=== PATIENT | female | born 1940 | race Caucasian/White ===

== ENCOUNTER 2024-01-17 22:47 | Emergency (ER) | payer MEDICARE, OTHER, SELFPAY ==
[2024-01-17 22:47] VITALS: BMI 20.2
[2024-01-17 22:51] VITALS: BP 97/63
[2024-01-17 23:05] VITALS: BP 107/77
--- NOTE | 2024-01-17 23:14 | ED.GENMED ---
History of Present Illness
<SAMUEL Streeter - Last Filed: 01/18/24 05:10>
General
Chief Complaint: Cardiac Symptoms
Source: patient
Exam Limitations: none
Time Seen by Provider: 01/17/24 23:14
Nursing documentation reviewed up to this point in time: agreed with
History of Present Illness
History of Present Illness:
Pt is an 83 yo F with PMH of cardiac stenting and AFib who presents to the ED stating she has been in AFib for an hour. Pt states she can feel palpations and is SOB. She states she has gone into AFib around 10 times since December 15 and is
following with Dr. Hinson at [place] where she is supposed to schedule ablation soon. She states she takes Eliquis, Plavix and metoprolol for AFib. She denies that she has ever been electrically cardioverted. Pt admits to associated chest
tightness and SOB that have been constant since onset of her AFib symptoms. She states it is uncomfortable but manageable. Pt denies dizziness, HAY, n/v, abdominal pain.
Past History
<SAMUEL Streeter - Last Filed: 01/18/24 05:10>
Past History
ED Past Medical History: GERD and Other (Peripheral neuropathy, anxiety); Negative CAD, Cancer, CHF, COPD, HTN, Hypercholesterolemia or IDDM
ED Past Surgical History: None
Social History
Tobacco: Other (Secondhand smoke)
Alcohol: Occasional
Drug: None
Personal:
Living: with family
Employment: Employed
Family History
Family History: Hypertension and CAD; Negative Early CAD
Review of Systems
<SAMUEL Streeter - Last Filed: 01/18/24 05:10>
Review of Systems
Allergies reviewed?: Yes
Constitutional: Denies fever, fatigue or chills
Respiratory: Reports trouble breathing (SOB); Denies cough
Cardiac: Reports palpitations and other; Denies diaphoresis or syncope
ABD/GI: Denies abdominal pain, nausea or vomiting
Neurological: Denies dizzy, headache, weakness or numbness
Phy Exam
<SAMUEL Streeter - Last Filed: 01/18/24 05:10>
General Physical Exam
General Presentation: well appearing and no apparent distress
General age: appears stated age
General Skin: warm and dry
General Habitus: normal and elderly
General Mental: alert
General Hydration: appears well hydrated
Cardiovascular Exam
Cardiovascular Exam: irregularly irregular
Pulmonary Exam
Pulmonary Exam: lungs clear and no respiratory distress
Neurological Exam
Neurological Exam: alert, oriented x3, no motor deficits and no sensory deficits
Course
<SAMUEL Streeter - Last Filed: 01/18/24 05:10>
Orders/Labs/Results
Orders:
Orders
01/17/24 22:51
EKG [Electrocardiogram (*1)] Urgent
Reason for Study: Atrial Fibrillation
EKG- Treatment ONCE
01/17/24 23:32
Complete Blood Count/With Diff Urgent
Comprehensive Metabolic Panel Urgent
Magnesium Urgent
NT-proBNP Urgent
Troponin I Urgent
01/18/24 00:10
0.9% Sodium Chloride 500 ml [Nss] 1,000 ml IV ONCE
01/18/24 02:09
Metoprolol [Lopressor] 2.5 mg IV NOW STA
Abnormal Lab Results
01/18/24
00:11
RBC 4.08 L 10^6/uL
(4.20-5.40)
MCH 32.1 H pg
(27.0-31.0)
RDW 14.6 H %
(11.5-14.5)
Abs Immat Gran (auto) 0.1 H 10^3/uL
(0-0.05)
Absolute Monos (auto) 1.0 H 10^3/uL
(0.1-0.6)
Immature Gran % 1.0 H %
(0-0.5)
Neutrophils % 38.1 L %
(42.2-75.2)
Monocytes % 16.6 H %
(1.7-9.3)
BUN 22 H mg/dl
(7-17)
Glucose 106 H mg/dl
(70-99)
AST 42 H U/L
(14-36)
01/18/24 00:11
01/18/24 00:11
Vital Signs
Initial and Last Documented VS:
Initial Vital Signs
Temp Pulse Resp BP Pulse Ox
97.9 F 122 24 97/63 98
01/17/24 22:51 01/17/24 22:51 01/17/24 22:51 01/17/24 22:51 01/17/24 22:51
Last Documented Vital Signs
Temp Pulse Resp BP Pulse Ox
97.9 F 93 12 104/73 97
01/17/24 22:51 01/18/24 03:00 01/18/24 03:00 01/18/24 02:00 01/18/24 03:00
<Emmanuelle Avery, - Last Filed: 01/18/24 02:58>
Orders/Labs/Results
Orders:
Orders
01/17/24 22:51
EKG [Electrocardiogram (*1)] Urgent
Reason for Study: Atrial Fibrillation
EKG- Treatment ONCE
01/17/24 23:32
Complete Blood Count/With Diff Urgent
Comprehensive Metabolic Panel Urgent
Magnesium Urgent
NT-proBNP Urgent
Troponin I Urgent
01/18/24 00:10
0.9% Sodium Chloride 500 ml [Nss] 1,000 ml IV ONCE
01/18/24 02:09
Metoprolol [Lopressor] 2.5 mg IV NOW STA
Abnormal Lab Results
01/18/24
00:11
RBC 4.08 L 10^6/uL
(4.20-5.40)
MCH 32.1 H pg
(27.0-31.0)
RDW 14.6 H %
(11.5-14.5)
Abs Immat Gran (auto) 0.1 H 10^3/uL
(0-0.05)
Absolute Monos (auto) 1.0 H 10^3/uL
(0.1-0.6)
Immature Gran % 1.0 H %
(0-0.5)
Neutrophils % 38.1 L %
(42.2-75.2)
Monocytes % 16.6 H %
(1.7-9.3)
BUN 22 H mg/dl
(7-17)
Glucose 106 H mg/dl
(70-99)
AST 42 H U/L
(14-36)
01/18/24 00:11
01/18/24 00:11
Vital Signs
Initial and Last Documented VS:
Initial Vital Signs
Temp Pulse Resp BP Pulse Ox
97.9 F 122 24 97/63 98
01/17/24 22:51 01/17/24 22:51 01/17/24 22:51 01/17/24 22:51 01/17/24 22:51
Last Documented Vital Signs
Temp Pulse Resp BP Pulse Ox
97.9 F 93 12 104/73 97
01/17/24 22:51 01/18/24 03:00 01/18/24 03:00 01/18/24 02:00 01/18/24 03:00
<SAMUEL Streeter - Last Filed: 01/18/24 05:10>
*EKG
Interpreted by ED Provider?: Yes
EKG Intrepretation Date: 01/17/24
EKG Intrepretation Time: 22:55
Interpretation: abnormal
Comparison EKG: changes noted
Rate: tachycardiac
Rhythm: a-fib
[place]: left axis deviation
Interval: normal interval
QRS Pattern: normal QRS
Ischemia: non-specific ST changes
*Critical Care Note
Total Time (30-74mins, 75-104mins- exclusive of procedures): Not Applicable
<Emmanuelle Avery DO - Last Filed: 01/18/24 02:58>
*Pulse Oximetry
Patient hypoxic: no
ED Attending Note
<Mary Braxton [facility] - Last Filed: 01/18/24 05:10>
-
Portions of this chart may have been created with voice recognition software.� Occasional wrong word or��sound alike� substitutions may have occurred due to the inherent limitations of voice recognition software.
<Emmanuelle Avery DO - Last Filed: 01/18/24 02:58>
ED Attending Note
Patient seen and examined by attending physician: Yes
I performed the substantive portion of visit, reviewed & personally made and approve the management plan that is documented in note by myself or SADE.: Yes
ED Attending Note:
This is an 83-year-old woman with history of CAD, paroxysmal atrial fibrillation, GERD, hypothyroidism. She has history of PTCA with stent June 2023. Shortly after that procedure, sometime in July she developed A-fib and was started on amiodarone
and did well but then developed ocular complications and amiodarone was discontinued in November. She suffered an episode of A-fib October 11 which lasted approximately 6 hours. Then since December 15 she states she has had at least 10 episodes of
recurrent A-fib. She notes moderate fatigue with onset of A-fib, accompanied with mild shortness of breath, mild chest discomfort and overall not feeling well. She is chronically maintained on metoprolol 12.5 mg twice daily. She did take an extra
dose of metoprolol when she felt that she was going to go into A-fib tonight around 8 PM. Despite doing so she developed palpitations around 10 PM similar to previous episodes of A-fib. She is chronically maintained on twice daily Eliquis and
maintained on Plavix since PTCA with stent in June.
PTCA was performed in [place].
She also follows with a senior mechanical project manager locally associated with [place], Dr. Goldsmith.
She was evaluated by dough molder earlier this week and plan is for A-fib ablation due to significantly symptomatic and recurrent A-fib but she states she required an EKG while in A-fib prior to planning her ablation procedure.
She has been hospitalized for persistent A-fib initially in July but has never required cardioversion, has always spontaneously converted to normal sinus rhythm.
She presents tonight requesting EKG to be done to document A-fib. Request EKG to be faxed to her senior mechanical project manager office.
After PTCA with stent patient had been doing well with cardiac rehab. Upon returning to this area she has continued with exercise regimen with a first aid trainer but admits to difficulty with her exercises over the past week or 2 due to fatigue and
dyspnea.
Weight has been stable. She denies leg pain or swelling.
She states thyroid function testing was normal last week.
GENERAL: Alert , in no apparent distress. 83-year-old woman appears her stated age, bright and alert, pleasant, appears in no acute distress.
EYE: pupils equal
NECK: Supple, no significant adenopathy. No JVD.
ENT: o/p clr, mmm.
CARDIAC: Irregularly irregular, mildly tachycardic at 110
LUNGS: Clear breath sounds bilaterally, no acute respiratory distress,
ABDOMEN: Soft, without focal tenderness, no r/g, no cvat
NEUROLOGICAL: Alert and oriented, no focal neuro deficits
SKIN: Warm and dry, skin intact.
MUSCULOSKELETAL: No edema, well perfused.
PSYCH: Normal and appropriate interaction.
Patient presents with recurrent A-fib with mildly rapid ventricular response, symptomatic with fatigue, mild dyspnea. She also notes mild intermittent chest discomfort. Concern for CHF, ACS/rate related ischemia.
EKG shows A-fib with ventricular response of 120, left axis deviation, mildly flipped T waves 1 and aVL otherwise unremarkable.
Will check labs including troponin, BNP.
Blood pressure is somewhat soft and patient states hypotension is frequent occurrence with her atrial fibrillation.
Overall comfortable in appearance and has been ambulatory without difficulty.
Clinically appears euvolemic and lungs are clear to auscultation, will initiate IV fluids, check labs.
03:00
Patient remains in A-fib but rate controlled in the 90s.
Overall appears comfortable, hemodynamically stable and eager to be discharged to home.
Recommend she continue her regular medications including Eliquis, Plavix.
Prompt follow-up with senior mechanical project manager this week for recheck.
Return precautions discussed.
Discharge Plan
Departure
Patient Disposition: Home (Routine Discharge)
Date of Disposition: 01/18/24
Time of Disposition: 02:57
Patient with high blood pressure during this ER visit?: No
Condition: Good
Discharge Problem:
Paroxysmal atrial fibrillation with rapid ventricular response
Instructions: Atrial fibrillation
Prescriptions:
No Action
clopidogrel [Plavix] 75 mg Tablet
75 mg PO DAILY
metoprolol succinate 25 mg Tablet Extended Release 24 Hr
12.5 mg PO DAILY
Eliquis 2.5 mg Tablet
2.5 mg PO BID
Referrals:
UNKNOWN - PT DOES,NOT KNOW [Family Provider] -
Activity Restrictions/Additional Instructions:
Continue all of your regular medications.
Touch base with your senior mechanical project manager on Friday for recheck.
Interventions
Interventions:
*Risk Screen - Suicide Last Done: 01/17/24 22:51
*General Assessment Last Done: 01/17/24 22:51
*Neglect/Abuse Screening Last Done: 01/17/24 22:51
ED- Fall Risk Assessment Last Done: 01/17/24 23:05
*ED COVID-19 Vaccine History Last Done: 01/17/24 23:05
*Nursing Disposition Last Done: 01/18/24 03:31
ED- Pulmonary Assessment Last Done: 01/17/24 23:05
ED- Cardiac Assessment Last Done: 01/17/24 23:05
Discharge Date and Time
Discharge Date/Time: 01/18/24 03:32
Print Language: SLOVENIAN
[2024-01-17 23:56] VITALS: BP 90/63
[2024-01-18] VITALS: BP 86/63
[2024-01-18] MEDS: NSS 1000 IV (00:10)
[2024-01-18 00:23] VITALS: BP 101/69
[2024-01-18 00:30] VITALS: BP 104/71
[2024-01-18 00:41] LABS: ALT (SGPT) 24 U/L (0-35); AST (SGOT) 42 U/L (14-36); Albumin 4.1 g/dl (3.5-5.0); Alkaline Phosphatase 47 U/L (38-126); Blood Urea Nitrogen 22 mg/dl (7-17); Calcium 9.7 mg/dl (8.4-10.2); Carbon Dioxide 25 mmol/L (22-30); Chloride 106 mmol/L (98-107); Glucose 106 mg/dl (70-99); Magnesium 2.1 mg/dl (1.6-2.3); Potassium 4.1 mmol/L (3.5-5.1); Sodium 140 mmol/L (135-145); Total Bilirubin 0.2 mg/dl (0.2-1.3); Total Protein 6.3 g/dl (6.3-8.2); eGFR > 60.00
[2024-01-18 00:47] LABS: % Basophils 0.3 % (0-2); % Monocytes 16.6 % (1.7-9.3); % Neutrophils 38.1 % (42.2-75.2); Absolute Eosinophils 0.1 10^3/uL (0-0.7); Absolute Immature Granulocytes 0.1 10^3/uL (0-0.05); Absolute Lymphocytes 2.6 10^3/uL (1.2-3.4); Absolute Neutrophils 2.3 10^3/uL (1.4-6.5); Hematocrit 38.9 % (37.0-47.0); Hemoglobin 13.1 g/dL (12.0-16.0); Mean Corp Hgb Conc. 33.7 g/dL (33.0-37.0); Mean Corpuscular Hgb 32.1 pg (27.0-31.0); Mean Corpuscular Volume 95.3 fL (81.0-99.0); Mean Platelet Volume 9.3 fL (7.4-10.4); Nucleated Red Blood Cells % 0 %; Platelet Count 242 10^3/uL (130-400); Red Blood Cell Count 4.08 10^6/uL (4.20-5.40); Red Cell Dist. Width 14.6 % (11.5-14.5)
[2024-01-18 00:51] LABS: NT-proBNP 238 pg/ml; Troponin I < 0.012 ng/ml
[2024-01-18 01:00] VITALS: BP 102/73
[2024-01-18 01:30] VITALS: BP 100/68
[2024-01-18 02:00] VITALS: BP 104/73
[2024-01-18] MEDS: LOPRESSOR 2.5 MG IV (02:10)
== END 2024-01-18 03:32 | disposition home or self-care (01) ==
LOC: EMR 22:47
PROVIDERS: EMERGENCY PHYSICIAN Emergency Medicine
DX: I48.0 Paroxysmal atrial fibrillation (principal); Z79.01 Long term (current) use of anticoagulants; K21.9 Gastro-esophageal reflux disease without esophagitis; Z77.22 Contact with and (suspected) exposure to environmental tobacco smoke (acute) (chronic); Z95.5 Presence of coronary angioplasty implant and graft; Z79.899 Other long term (current) drug therapy
CPT/HCPCS: 96374; 96361; 99284; 80053; 83735; 83880; 84484; 85025; 93005